=== PATIENT | male | born 1995 | race Caucasian/White ===

== ENCOUNTER 2023-04-19 15:41 | Emergency (ER) | payer MEDICAID, SELFPAY ==
[2023-04-19] VITALS (21 sets, daily range): BP systolic 133–153; BP diastolic 80–98; PULSE 64–111; RESP 12–21; TEMP 36.7–36.9; O2SAT 91–100
--- NOTE | ~2023-04-19 | XR_ITS ---
EXAMINATION: XR chest 2V DATE: 04/19/2023 19:34 INDICATION: Cough TECHNIQUE: PA and lateral views of the chest are obtained. COMPARISON: 02/05/2017 FINDINGS: The lungs are free of acute opacities. No pleural effusion or pneumothorax. The cardiomedia stinal silhouette is normal. The visualized bones and soft tissues are unremarkable. IMPRESSION: 1. No acute cardiopulmonary abnormality. Reviewed, dictated and finalized at location F.
--- NOTE | ~2023-04-19 | CT_ITS ---
EXAMINATION: CT brain wo con INDICATION: Headache, new onset dizziness COMPARISON: 05/23/2013 TECHNIQUE: Standard unenhanced head CT. The dose-length product (DLP) was 756.67 mGy-cm. The mA was a djusted according to patient size. Iterative reconstruction technique was employed. FINDINGS: No intracranial hemorrhage, acute infarction, or abnormal mass lesion. The ventricles are n ormal. No abnormal mass effect or midline shift. The polk-white matter differentiation is normal. The basal cisterns are patent. The orbits are normal. There is mild mucosal thickening of the paranasal sinuses. There are polyps or mucous retention cysts of the maxillary sinuses. IMPRESSION: 1. No acute intracranial abnormality. Reviewed, dictated and finalized at location F.
--- NOTE | 2023-04-19 17:36 | ECG_ITS ---
Measurements Intervals [place] Rate: 80 P: 31 OR: 165 QRS: 19 QRSD: 93 T: 17 QT: 342 QTc: 397 Interpretive Statements SINUS RHYTHM NORMAL ECG NO PREVIOUS ECG AVAILABLE FOR COMPARISON Electronically Signed On 04-19-2023 20:11:54 CDT by Wilian Dennison D.O.
[2023-04-19 17:56] LABS: Basophils Absolute Auto 0.1 K/mm3 (0.0-0.1); Eosinophils Absolute Auto 0.1 K/mm3 (0-0.3); Eosinophils Percent Auto 1.4 % (0-4.4); Hematocrit 50.3 % (42.0-52.0); Hemoglobin 16.8 g/dL (14.0-18.0); Immature Granulocyte Absolute 0.06 K/mm3 (0.00-0.031); Immature Granulocyte Percent A 0.8 % (0-0.5); Lymphocytes Absolute Auto 1.85 K/mm3 (0.9-3.2); Lymphocytes Percent Auto 23.5 % (18.3-44.2); Mean Corpuscular HGB Conc 33.4 g/dl (32-36); Mean Corpuscular Hemoglobin 31.7 pg (26-34); Mean Corpuscular Volume 94.9 fl (80-100); Mean Platelet Volume 9.6 fl (7.4-10.4); Monocytes Absolute Auto 0.5 K/mm3 (0.1-0.6); Monocytes Percent Auto 6.5 % (2.6-8.5); Neutrophils Absolute Auto 5.3 K/mm3 (1.3-6.7); Neutrophils Percent Auto 66.8 % (45.5-73.1); Platelet Count Result 284 k/mm3 (150-375); Red Cell Distribution Width 11.4 % (11.5-14.5); White Blood Count 7.9 K/mm3 (4.5-10.0)
[2023-04-19 18:02] LABS: Alanine Aminotransferase 38 U/L (6-50); Albumin Level 5.1 g/dL (3.5-5.1); Alkaline Phosphatase 38 U/L (38-126); Anion Gap 8 mmol/L (8-16); Aspartate Amino Transferase 32 U/L (17-59); Bilirubin,Total 0.9 mg/dL (0.2-1.3); Blood Urea Nitrogen 20 mg/dL (9-20); Calcium 9.6 mg/dL (8.4-10.2); Carbon Dioxide 27 mmol/L (22-30); Chloride 103 mmol/L (98-107); Estimated CRCL calculation 112 ml/min; Estimated Glomerular Filt Rate > 60; Glucose 93 mg/dL (65-110); Potassium 4.1 mmol/L (3.4-5.0); Sodium 138 mmol/L (137-145)
--- NOTE | 2023-04-19 19:28 | ED.DIZZY ---
HPI - Dizziness General Chief Complaint: Dizziness Stated Complaint: lightheaded Time Seen by Provider: 04/19/23 17:58 History of Present Illness HPI Narrative: 27-year-old male reports for evaluation for lightheadedness and a left-sided headache since today. Patient states he began feeling lightheaded around 1030 this morning. He states he feels lightheaded when he goes from a sitting to standing position. He denies a vertical sensation. He states he developed a left-sided headache he describes as pressure to the left parietal lobe that extends into the occiput. States he does not normally get headaches. Patient states he took [id number] pain medications without relief earlier today. He also reports he has been feeling sick the past few weeks with cough and congestion. States he has felt better the past few days, but while he was feeling sick he had chest pain and dyspnea and reports a few episodes of a small amount of hemoptysis a week ago after he was coughing aggressively . He states he is currently feeling much better and denies current chest pain or shortness of breath. He denies palpitations, fever, body aches or chills, neck pain or back pain, nausea, vomiting, diarrhea, abdominal pain, dysuria or hematuria, syncope, head injuries, drug use, history of VTE, recent surgeries or hospitalizations, vision changes, focal numbness or weakness. He reports mild sinus congestion currently, denies otalgia and sore throat. Reports he has a mild lingering cough. Related Data Allergies Allergy/AdvReac Type Severity Reaction Status Date / Time No Known Allergies Allergy Unverified 02/05/17 13:18 Review of Systems Review of Systems: CONSTITUTIONAL: Denies fever, chills EYES: Denies visual changes, redness, or discharge. ENT: See HPI CARDIOVASCULAR: Denies chest pain, palpitations, or edema. RESPIRATORY: See HPI GASTROINTESTINAL: Denies abdominal pain, nausea, vomiting, or diarrhea. GENITOURINARY: Denies dysuria or hematuria. SKIN: Denies rash or itching. MUSCULOSKELETAL: Denies back pain, joint pain, or myalgia. NEUROLOGIC: See HPI PSYCHIATRIC: Denies anxiety or depression. [facility] Family History Family History Mother Family history of diabetes mellitus in first degree relative Social History Social History Smoking status: Never smoker Exam Narrative: GENERAL: Well-appearing, in no acute distress. Patient resting comfortably in exam bed. He is pleasant and conversational. HEAD: Normocephalic, atraumatic EYES: PERRLA, EOMI. No nystagmus ENT: Nares clear. Mucous membranes moist. Oropharynx without tonsillar hypertrophy exudate or other lesions. Bilateral TMs are polk and nonbulging. Normal canals. No effusions. NECK: Supple. No nuchal rigidity. CHEST: No respiratory distress. Clear to auscultation, no adventitious breath sounds. HEART: Regular rate and rhythm. No murmur heard. Normal peripheral pulses. ABDOMEN: Soft, nontender, normal active bowel sounds. EXTREMITIES: Normal range of motion. No edema. SKIN: Warm, dry, no rash. NEURO: No focal deficits. Alert and oriented x3. Cranial nerves II through XII intact. Strength 5/5 in BUE and BLE. Sensation intact throughout. No pronator drift. Normal [id number] PSYCH: Normal mood and affect. Course Vital Signs Vital signs: Vital Signs Temperature 98.0 F 04/19/23 15:57 Pulse Rate 79 04/19/23 15:57 Respiratory Rate 17 04/19/23 15:57 Blood Pressure 153/90 H 04/19/23 15:57 Pulse Oximetry 100 04/19/23 15:57 Oxygen Delivery Room Air 04/19/23 15:57 Temperature 98.0 F 04/19/23 15:57 Pulse Rate 111 H 04/19/23 18:54 Respiratory Rate 17 04/19/23 15:57 Blood Pressure 143/98 H 04/19/23 18:54 Pulse Oximetry 100 04/19/23 15:57 Oxygen Delivery Room Air 04/19/23 15:57 MDM - Dizziness MDM Narrati
[2023-04-19] MEDS: KETOROLAC 30 MG/ML VIAL (*BKC) IV PUSH (19:46)
[2023-04-19] MEDS: PROCHLORPERAZINE EDISYLATE 10 MG/2 ML VIAL IM (19:46)
[2023-04-19] MEDS: diphenhydrAMINE HCl INJ 50 MG/ML VIAL 25 MG IV PUSH (19:46)
[2023-04-19] MEDS: SODIUM CHLORIDE 0.9% IV 1,000 ML 125 ML IV CONT (19:47)
[2023-04-19 20:25] LABS: Influenza A QL RT-PCR Negative (Negative); Influenza B QL RT-PCR Negative (Negative); SARS-CoV-2 RNA PCR Negative (Negative)
[2023-04-19 20:27] LABS: D Dimer 0.48 ug/mL (<0.48)
== END 2023-04-19 21:20 | disposition home or self-care (01) ==
PROVIDERS: Emergency Medicine; Emergency Provider Physician Assistant
DX: R42 Dizziness and giddiness (principal); G44.201 Tension-type headache, unspecified, intractable; Z20.822 Contact with and (suspected) exposure to COVID-19
CPT/HCPCS: 36415; 70450; 71046; 80053; 85025; 85380; 87636; 93005; 96361; 96372; 96374; 96375; 99284; J0780; J1200; J1885; J7030